=== PATIENT | male | born 1955 | race Two or more races ===

== ENCOUNTER 2017-11-09 16:19 | Inpatient (IN) | payer MEDICAID ==
[2017-11-09] MEDS ORDERED: IPRATROPIUM/ALBUTEROL 3 ML DEYVIAL IH ONE (16:27)
--- NOTE | 2017-11-09 16:45 | EDPHY ---
H & P Time Seen by Provider: 11/09/17 16:34 HPI/ROS: Chief complaint. Shortness of breath HPI. 62-year-old male presents emergency department with shortness of breath for 3 days. 3 days ago he began to develop a sore throat. It quickly followed with cough productive of yellow sputum. He does not think he has been running a fever. He does not have any chest discomfort. He feels that he can not quite take a deep full breath. However he does not have any chest discomfort especially with breathing. He does have increased shortness of breath with exertion. He does have a history of pneumonia. He continues to be a smoker. He has had sick contacts at work. Otherwise no recent travel. No unusual leg pain or swelling. ROS Constitutional. no fever/chills, no weakness Eyes. no problems with vision ENT. Sore throat Cardiovascular. no chest pain Respiratory. Shortness of breath and cough Abdominal. no abdominal pain, no nausea/vomiting, no diarrhea . no problems urinating MS. no calf pain/swelling, no neck/back pain, no joint pain Skin. no rash Lymph. no swollen glands Neuro. no headache, no dizziness, no difficulty walking or with speech Past Medical/Surgical History: Pneumonia Social History: Single, daily smoker, no alcohol Smoking Status: Current every day smoker Physical Exam: General Appearance: Alert well-developed male moderate distress vital signs show heart rate 102 and room air oxygen saturation 84% Eyes: Pupils equal and round no pallor or injection. ENT, mucous membranes are moist. Pharynx slightly injected without exudate Respiratory: Decreased air movement. No retractions. Inspiratory expiratory wheezing. Cardiovascular: regular rate and rhythm with mild tachycardia Gastrointestinal: Abdomen is soft and nontender, no masses, bowel sounds normal. Neurological: Awake and alert, sensory and motor exams grossly normal. Skin: Warm and dry, no rashes. Musculoskeletal: Neck is supple nontender. Extremities symmetrical, full range of motion. Psychiatric: Patient is oriented X 3, there is no agitation. Constitutional: Initial Vital Signs Temperature (C) 36.6 C 11/09/17 16:30 Heart Rate 102 H 11/09/17 16:30 Respiratory Rate 22 H 11/09/17 16:30 Blood Pressure 184/94 H 11/09/17 16:30 O2 Sat (%) 84 L 11/09/17 16:30 O2 Delivery Mode Nasal Cannula O2 (L/minute) 3 Allergies/Adverse Reactions: No Known Allergies Allergy (Unverified 11/09/17 16:30) Home Medications: Medication Instructions Recorded Albuterol Hfa Anes Only [Proair 2 puffs IH QID PRN #1 mdi 11/09/17 Hfa Icu (*)] Azithromycin [Zithromax] 250 mg PO DAILY #6 tab 11/09/17 predniSONE 40 mg PO DAILY #8 tablet 11/09/17 Medical Decision Making - Diagnostics Imaging Results: Imaging Impressions Chest X-Ray 11/09/17 16:55 Impression: 1. Suspicious for a right hilar mass. Recommend chest CT with IV contrast. 2. COPD/airways disease, without pneumonia. Results discussed with Dr. Bill Russell at 5:45 PM. Chest x-ray reviewed by me and discussed with Dr. Aquino shows no evidence for pneumonia. Appears to be COPD and airways disease. However there does appear to be a fullness in the right hilum suspicious for mass and again suspicious for cancer. Procedures: DuoNeb updraft Albuterol updraft, prednisone orally Albuterol updraft 2. ED Course/Re-evaluation: Patient tells me after the DuoNeb updraft he feels 75% better. Now his room air saturation is 88% After the albuterol updraft patient is much improved The patient and I discussed x-ray findings and recommendation for CT angiogram for further evaluation of perihilar mass. The patient would prefer to wait a few days rather than have it now. I have offered to do the CT angiogram here today. However the patient would prefer to wait as his son needs to start work. I emphasized the need to have this imaging study done in the next several days. He expresses understanding and agreement Re-evaluation 6:23 p.m.. Patient feels more comfortable however pulse oximeter is 83% saturation on room air. Patient and I as well as his son discussed treatment plan including recommendation for admission. They expressed understanding and agreement. They would like to drive to [facility] by private vehicle. I consulted and discussed the case with Dr. Ennis, hospitalist, who agrees to the admission Differential Diagnosis: I considered pneumonia, COPD. There is possibility of right hilar tumor. Patient continues to be hypoxic despite multiple breathing treatments. - Data Points Laboratory Results: Laboratory Results 11/09/17 18:30 11/09/17 18:30 11/09/17 11/09/17 18:30 18:30 WBC 8.50 10^3/uL 10^3/uL (3.80-9.50) RBC 5.58 10^6/uL 10^6/uL (4.40-6.38) Hgb 18.7 g/dL H g/dL (13.7-17.5) Hct 53.4 % H % (40.0-51.0) MCV 95.7 fL fL (81.5-99.8) MCH 33.5 pg pg (27.9-34.1) MCHC 35.0 g/dL g/dL (32.4-36.7) RDW 12.9 % % (11.5-15.2) Plt Count 170 10^3/uL 10^3/uL (150-400) MPV 10.4 fL fL (8.7-11.7) Neut % (Auto) 78.7 % H % (39.3-74.2) Lymph % (Auto) 10.4 % L % (15.0-45.0) Spink % (Auto) 6.2 % % (4.5-13.0) Eos % (Auto) 3.8 % % (0.6-7.6) Baso % (Auto) 0.7 % % (0.3-1.7) Nucleat RBC Rel Count 0.0 % % (0.0-0.2) Absolute Neuts (auto) 6.69 10^3/uL H 10^3/uL (1.70-6.50) Absolute Lymphs (auto) 0.88 10^3/uL L 10^3/uL (1.00-3.00) Absolute Monos (auto) 0.53 10^3/uL 10^3/uL (0.30-0.80) Absolute Eos (auto) 0.32 10^3/uL 10^3/uL (0.03-0.40) Absolute Basos (auto) 0.06 10^3/uL 10^3/uL (0.02-0.10) Absolute Nucleated RBC 0.00 10^3/uL 10^3/uL (0-0.01) Immature Gran % 0.2 % % (0.0-1.1) Immature Gran # 0.02 10^3/uL 10^3/uL (0.00-0.10) Sodium 137 mEq/L mEq/L (135-145) Potassium 3.9 mEq/L mEq/L (3.5-5.2) Chloride 99 mEq/L mEq/L (97-110) Carbon Dioxide 31 mEq/l mEq/l (22-31) Anion Gap 7 mEq/L L mEq/L (8-16) BUN 11 mg/dL mg/dL (7-23) Creatinine 0.5 mg/dL L mg/dL (0.7-1.3) Estimated GFR > 60 Glucose 166 mg/dL H mg/dL (70-100) Calcium 9.5 mg/dL mg/dL (8.5-10.4) Medications Given: Discontinued Medications Albuterol (Proventil Neb) 3 ml IH EDNOW ONE Stop: 11/09/17 16:55 Last Admin: 11/09/17 16:59 Dose: 3 ml Albuterol (Proventil Neb) 3 ml IH EDNOW ONE Stop: 11/09/17 17:57 Last Admin: 11/09/17 18:07 Dose: 3 ml Albuterol/Ipratropium (Duoneb) 3 ml IH EDNOW ONE Stop: 11/09/17 16:28 Last Admin: 11/09/17 16:33 Dose: 3 ml Prednisone (Prednisone) 60 mg PO EDNOW ONE Stop: 11/09/17 16:55 Last Admin: 11/09/17 16:59 Dose: 60 mg Departure - Departure Disposition: [facility] Inpatient Acute Clinical Impression: Chronic obstructive pulmonary disease with acute exacerbation Condition: Good
[2017-11-09] MEDS ORDERED: ALBUTEROL 3 ML DEYVIAL IH ONE ×2 (16:54→17:56)
[2017-11-09] MEDS ORDERED: predniSONE 20 MG TAB PO ONE (16:54)
[2017-11-09 18:34] LABS: PLATELET COUNT 170 10^3/uL (150-400)
[2017-11-09] MEDS ORDERED: ALBUTEROL 3 ML DEYVIAL IH PRN (22:25)
[2017-11-09] MEDS ORDERED: ONDANSETRON DISINTEGRATING 4 MG TAB PO PRN (22:25)
[2017-11-09] MEDS ORDERED: ONDANSETRON 4 MG/2 ML VIAL IVP PRN (22:25)
[2017-11-09] MEDS ORDERED: AZITHROMYCIN 250 MG TAB PO ONE (22:44)
--- NOTE | 2017-11-09 23:44 | PDGENHP ---
History and Physical - Chief Complaint Shortness of breath - History of Present Illness 62 yo M w/ presumed COPD and long smoking hx presents with shortness of breath. He explains that he first noted a sore throat 2-3 days ago. Since that time he began to note cough and progressive shortness of breath. His shortness of breath became severe today so he presented to the ED. At the ED he was noted to be in respiratory distress with diffuse wheezing and hypoxia upon presentation. He tells me he feels much improved after steroids and nebulizer treatments. History Information - Allergies/Home Medication List Allergies/Adverse Reactions: No Known Allergies Allergy (Verified 11/09/17 21:32) I have personally reviewed and updated: family history, medical history - Past Medical History COPD (No formal diagnosis) - Family History Positive for: cancer, diabetes type II - Social History Smoking Status: Current every day smoker Review of Systems Review of Systems: ROS: 10pt was reviewed & negative except for what was stated in HPI & below Physical Exam Physical Exam: Temp Pulse Resp BP Pulse Ox 37.0 C 85 18 142/83 H 93 11/09/17 23:16 11/09/17 23:16 11/09/17 23:16 11/09/17 23:16 11/09/17 23:16 O2 (L/minute) 4 Constitutional: no apparent distress, not in pain Eyes: PERRL, EOMI Ears, Nose, Mouth, Throat: moist mucous membranes, no oral mucosal ulcers Cardiovascular: regular rate and rhythym, no murmur, rub, or gallop Respiratory: no respiratory distress, expiratory wheeze (Diffuse), rhonchi Gastrointestinal: normoactive bowel sounds, soft, non-tender abdomen Skin: warm, normal color Musculoskeletal: full muscle strength, no muscle tenderness Neurologic: AAOx3, CN II-XII Intact Psychiatric: interacting appropriately, not anxious Lab Data & Imaging Review 11/09/17 18:30 11/09/17 18:30 WBC 8.50 10^3/uL (3.80-9.50) 11/09/17 18:30 RBC 5.58 10^6/uL (4.40-6.38) 11/09/17 18:30 Hgb 18.7 g/dL (13.7-17.5) H 11/09/17 18:30 Hct 53.4 % (40.0-51.0) H 11/09/17 18:30 MCV 95.7 fL (81.5-99.8) 11/09/17 18:30 MCH 33.5 pg (27.9-34.1) 11/09/17 18:30 MCHC 35.0 g/dL (32.4-36.7) 11/09/17 18:30 RDW 12.9 % (11.5-15.2) 11/09/17 18:30 Plt Count 170 10^3/uL (150-400) 11/09/17 18:30 MPV 10.4 fL (8.7-11.7) 11/09/17 18:30 Neut % (Auto) 78.7 % (39.3-74.2) H 11/09/17 18:30 Lymph % (Auto) 10.4 % (15.0-45.0) L 11/09/17 18:30 Beauregard % (Auto) 6.2 % (4.5-13.0) 11/09/17 18:30 Eos % (Auto) 3.8 % (0.6-7.6) 11/09/17 18:30 Baso % (Auto) 0.7 % (0.3-1.7) 11/09/17:30 Nucleat RBC Rel Count 0.0 % (0.0-0.2) 11/09/17 18:30 Absolute Neuts (auto) 6.69 10^3/uL (1.70-6.50) H 11/09/17 18:30 Absolute Lymphs (auto) 0.88 10^3/uL (1.00-3.00) L 11/09/17 18:30 Absolute Monos (auto) 0.53 10^3/uL (0.30-0.80) 11/09/17 18:30 Absolute Eos (auto) 0.32 10^3/uL (0.03-0.40) 11/09/17 18:30 Absolute Basos (auto) 0.06 10^3/uL (0.02-0.10) 11/09/17 18:30 Absolute Nucleated RBC 0.00 10^3/uL (0-0.01) 11/09/17 18:30 Immature Gran % 0.2 % (0.0-1.1) 11/09/17 18:30 Immature Gran # 0.02 10^3/uL (0.00-0.10) 11/09/17 18:30 Sodium 137 mEq/L (135-145) 11/09/17 18:30 Potassium 3.9 mEq/L (3.5-5.2) 11/09/17 18:30 Chloride 99 mEq/L (97-110) 11/09/17 18:30 Carbon Dioxide 31 mEq/l (22-31) 11/09/17 18:30 Anion Gap 7 mEq/L (8-16) L 11/09/17 18:30 BUN 11 mg/dL (7-23) 11/09/17 18:30 Creatinine 0.5 mg/dL (0.7-1.3) L 11/09/17 18:30 Estimated GFR > 60 11/09/17 18:30 Glucose 166 mg/dL (70-100) H 11/09/17 18:30 Calcium 9.5 mg/dL (8.5-10.4) 11/09/17 18:30 Imaging Review: Imaging Impressions Chest X-Ray 11/09/17 16:55 Impression: 1. Suspicious for a right hilar mass. Recommend chest CT with IV contrast. 2. COPD/airways disease, without pneumonia. Results discussed with Dr. Bill Russell at 5:45 PM. Assessment & Plan Assessment: 62 yo M w/ presumed COPD presents with likely COPD exacerbation and incidentally found R hilar mass. Plan: 1. Presumed COPD with acute exacerbation - Patient describes sore throat followed by progressive SOB. Presentation c/w COPD exacerbation, likely 2/2 viral trigger. He has no formal diagnosis of COPD but has >50 pack year smoking hx. He does not use any daily medication for COPD. - Prednisone, azithromycin x5 days - Duonebs QID, albuterol q2h PRN - Respiratory PCR ordered 2. Hilar mass - Incidentally found on CXR today, unclear if contributing to symptoms. Patient refused CT scan in ED today for further evaluation, would discuss this with him further and possibly defer to outpatient setting if he prefers. 3. AHRF - Most likely 2/2 #1 with possible contribution from #2. Incentive spirometry ordered, wean O2 as able. Diet - Regular Code - Full Ppx - LMWH Dispo - Admit under observation status
[2017-11-10 05:12] LABS: PLATELET COUNT 171 10^3/uL (150-400)
[2017-11-10] MEDS: IPRATROPIUM/ALBUTEROL 3 ML DEYVIAL IH SCH ×4 (05:14→19:59)
[2017-11-10] MEDS ORDERED: predniSONE 20 MG TAB PO SCH (09:00)
[2017-11-10] MEDS: AZITHROMYCIN 250 MG TAB PO SCH (10:03)
[2017-11-10] MEDS: ENOXAPARIN 40 MG/0.4 ML SYR SC SCH (10:04)
--- NOTE | 2017-11-10 14:45 | HOSPPROG ---
Hospitalist Progress Note Assessment/Plan: 62 yo M w/ presumed COPD presents with likely COPD exacerbation and incidentally found R hilar mass. Plan: 1. Presumed COPD with acute exacerbation - Patient describes sore throat followed by progressive SOB. Presentation c/w COPD exacerbation, likely 2/2 viral trigger. He has no formal diagnosis of COPD but has >50 pack year smoking hx. He does not use any daily medication for COPD. - Increase steroids and change to Solu-Medrol today, azithromycin x5 days - Duonebs QID, albuterol q2h PRN - Respiratory PCR c/w Human Metapneumovirus 2. Hilar mass - Incidentally found on CXR today, unclear if contributing to symptoms. Patient refused CT scan in ED today for further evaluation, would discuss this with him further and possibly defer to outpatient setting if he prefers. Will discuss obtaining CT with the pt. 3. AHRF - Most likely 2/2 #1 with possible contribution from #2. Incentive spirometry ordered, wean O2 as able. Diet - Regular Code - Full Ppx - LMWH Dispo - change to inpatient. Expect d/c tomorrow or the next. Wean off O2. Subjective: some improvement but still on 4 L o2. Objective: Vital Signs Temp Pulse Resp BP Pulse Ox 36.8 C 81 16 128/80 H 87 L 11/10/17 11:26 11/10/17 12:20 11/10/17 12:20 11/10/17 11:26 11/10/17 12:20 Microbiology 11/09/17 23:25 Respiratory Panel (PCR) - Final Nasal, Sinus - Anaerobic Tube/Swab Human Rhinovirus/Enterovirus Laboratory Results 11/10/17 04:55 11/10/17 04:55 - Physical Exam Constitutional: no apparent distress Eyes: PERRL, EOMI Ears, Nose, Mouth, Throat: moist mucous membranes, hearing normal, ears appear normal Cardiovascular: regular rate and rhythym, No edema Respiratory: no respiratory distress, expiratory wheeze Gastrointestinal: normoactive bowel sounds, soft, non-tender abdomen, no palpable masses Genitourinary: no bladder fullness Skin: warm Musculoskeletal: full muscle strength Neurologic: AAOx3 Psychiatric: interacting appropriately, not anxious, not encephalopathic Lymph, Heme, Immunologic: No petechiae ICD10 Worksheet Patient Problems: Problems Problem Status Onset Chronic obstructive pulmonary disease with acute exacerbation Acute
[2017-11-10] MEDS: methylPREDNISolone SOD SUCC 125 MG/2 ML VIAL IVP SCH ×2 (16:11→21:41)
--- NOTE | 2017-11-10 17:32 | ASMTCMCOM ---
CM Note CM Note Notes: Pt admitted for COPD, he is over income for medicaid can qualify for CICP but otherwise not eligible for outpt services. Anticipate will dc home independent when medically stable. CM available for any changes. DC Plan: Independent Date Signed: 11/10/2017 05:32 PM Electronically Signed By:Alie Henao RN
[2017-11-11] MEDS: IPRATROPIUM/ALBUTEROL 3 ML DEYVIAL IH SCH ×4 (05:54→20:32)
[2017-11-11] MEDS: CEPACOL LOZENGE PO PRN ×2 (07:35→16:01)
[2017-11-11] MEDS: methylPREDNISolone SOD SUCC 125 MG/2 ML VIAL IVP SCH ×2 (10:31→20:23)
[2017-11-11] MEDS: AZITHROMYCIN 250 MG TAB PO SCH (10:31)
[2017-11-11] MEDS: ENOXAPARIN 40 MG/0.4 ML SYR SC SCH (10:31)
[2017-11-11] MEDS ORDERED: IOPAMIDOL (ISOVUE-300) 100 ML BTL ONE (16:20)
--- NOTE | 2017-11-11 16:27 | HOSPPROG ---
Hospitalist Progress Note Assessment/Plan: 62 yo M w/ presumed COPD presents with likely COPD exacerbation and incidentally found R hilar mass. Plan: 1. Presumed COPD with acute exacerbation - Patient describes sore throat followed by progressive SOB. Presentation c/w COPD exacerbation, likely 2/2 viral trigger. He has no formal diagnosis of COPD but has >50 pack year smoking hx. He does not use any daily medication for COPD. -cont steroids at current dose -cont nebs scheduled and prn - Respiratory PCR c/w Human Metapneumovirus 2. Hilar mass - Incidentally found on CXR -Agrees to have CT Chest today 3. AHRF - Most likely 2/2 #1 with possible contribution from #2. Incentive spirometry ordered, wean O2 as able. -He is improving. Diet - Regular Code - Full Ppx - LMWH Dispo - cont inpatient. Subjective: still on supplemental O2. He wants to get the CT Chest to eval mass. Objective: Vital Signs Temp Pulse Resp BP Pulse Ox 36.8 C 101 H 16 150/76 H 93 11/11/17 15:24 11/11/17 16:03 11/11/17 16:03 11/11/17 16:03 11/11/17 16:03 Laboratory Results 11/10/17 04:55 11/10/17 04:55 11/10/17 11/11/17 11/12/17 05:59 05:59 05:59 Intake Total 320 1130 Balance 320 1130 - Physical Exam Constitutional: no apparent distress Eyes: PERRL, EOMI Ears, Nose, Mouth, Throat: moist mucous membranes, hearing normal Cardiovascular: regular rate and rhythym, No edema Respiratory: reduced air movement, expiratory wheeze Gastrointestinal: normoactive bowel sounds, soft, non-tender abdomen Skin: warm Musculoskeletal: full muscle strength Neurologic: AAOx3 Psychiatric: interacting appropriately, not anxious, not encephalopathic, thought process linear Lymph, Heme, Immunologic: No petechiae ICD10 Worksheet Patient Problems: Problems Problem Status Onset Chronic obstructive pulmonary disease with acute exacerbation Acute
[2017-11-12] MEDS: ACETAMINOPHEN 325 MG TAB PO PRN ×2 (04:19→11:03)
[2017-11-12] MEDS: IPRATROPIUM/ALBUTEROL 3 ML DEYVIAL IH SCH ×4 (05:19→20:11)
--- NOTE | 2017-11-12 07:38 | PDMN ---
Medical Necessity Medical necessity: 11/10/17 14:41 Patient meets inpatient criteria per MD note and MCG M-100 COPD (new or worsened s/s COPD that persist despite obs care: ongoing hypoxemia (sat 87% on 2 LPM O2), resp PCR c/w Human Metapneumovirus; incidental hilar mass found on CXR; LOS > 2 midnights for IV steroids, nebs, po antibiotics, supplemental O2.)
[2017-11-12] MEDS: AZITHROMYCIN 250 MG TAB PO SCH (08:36)
[2017-11-12] MEDS: ENOXAPARIN 40 MG/0.4 ML SYR SC SCH (08:36)
[2017-11-12] MEDS: methylPREDNISolone SOD SUCC 125 MG/2 ML VIAL IVP SCH ×2 (08:37→20:43)
--- NOTE | 2017-11-12 13:53 | HOSPPROG ---
Hospitalist Progress Note Assessment/Plan: 62 yo M w/ presumed COPD presents with likely COPD exacerbation and incidentally found R hilar mass. CT imaging personally reviewed. There is no e/o of hilar mass. He is still hypoxic and worse with activity 1. Presumed COPD with acute exacerbation - Patient describes sore throat followed by progressive SOB. Presentation c/w COPD exacerbation, likely 2/2 viral trigger. He has no formal diagnosis of COPD but has >50 pack year smoking hx. He does not use any daily medication for COPD. -cont steroids at current dose, can change to PO tomorrow -cont nebs scheduled and prn - Respiratory PCR c/w Human Metapneumovirus 2. Hilar mass - Incidentally found on CXR -Not found on CT Chest 3. AHRF - overall improving Diet - Regular Code - Full Ppx - LMWH Dispo - cont inpatient. Plan: per above keep overnight anticipate d/c tomorrow. Subjective: no cp. some sob worse with activity. some coughing. still needing O2 intermittently Objective: Vital Signs Temp Pulse Resp BP Pulse Ox 36.5 C 103 H 16 178/90 H 91 L 11/12/17 11:11 11/12/17 11:11 11/12/17 11:11 11/12/17 11:11 11/12/17 11:11 11/11/17 11/12/17 11/13/17 05:59 05:59 05:59 Intake Total 320 1130 Balance 320 1130 - Physical Exam Constitutional: no apparent distress Eyes: PERRL, EOMI Ears, Nose, Mouth, Throat: moist mucous membranes, hearing normal Cardiovascular: regular rate and rhythym Respiratory: reduced air movement, expiratory wheeze Gastrointestinal: normoactive bowel sounds, soft, non-tender abdomen, no palpable masses Skin: warm Neurologic: AAOx3 Psychiatric: interacting appropriately, not anxious, not encephalopathic Lymph, Heme, Immunologic: No petechiae ICD10 Worksheet Patient Problems: Problems Problem Status Onset Chronic obstructive pulmonary disease with acute exacerbation Acute
[2017-11-13] MEDS: IPRATROPIUM/ALBUTEROL 3 ML DEYVIAL IH SCH ×3 (05:11→15:48)
[2017-11-13 07:50] VITALS: BP 131/80
[2017-11-13] MEDS: methylPREDNISolone SOD SUCC 125 MG/2 ML VIAL IVP SCH (09:03)
[2017-11-13] MEDS: AZITHROMYCIN 250 MG TAB PO SCH (09:03)
[2017-11-13] MEDS: ENOXAPARIN 40 MG/0.4 ML SYR SC SCH (09:03)
[2017-11-13] MEDS ORDERED: MAGNESIUM HYDROXIDE 30 ML UDCUP PO PRN (09:44)
[2017-11-13] MEDS ORDERED: BISACODYL 10 MG SUPP PR PRN (09:44)
[2017-11-13] MEDS ORDERED: POLYETHYLENE GLYCOL 3350 17 GM PKT PO PRN (09:44)
[2017-11-13] MEDS ORDERED: LACTULOSE 20 GM/30 ML UDCUP PO PRN (09:44)
--- NOTE | 2017-11-13 13:53 | PDHOMEO2F ---
Home Oxygen Face to Face Home Orders: I certify that a physician or a nurse practitioner or physician's assistant shift supervisor has had a [id number] encounter with this patient on the date of this order due to the diagnosis listed, which relates to the primary reason the patient requires home oxygen. Alternative treatments have been tried, or considered, and deemed ineffective. It is anticipated that supplemental oxygen will result in improvement with treatment. Home oxygen qualifying diagnosis: hypoxemia SpO2 on room air (%): 87 Frequency of home oxygen needed: continuous Home oxygen liters per minute: 2 Home oxygen delivery device: nasal cannula Concentrator: Yes E-tanks for mobility and back up: Yes If ordering portable O2, is the patient mobile in the home?: Yes I certify that, based on these findings, the home oxygen is medically necessary for this patient for the following length of time. Length of time home oxygen needed: 1 week
--- NOTE | 2017-11-13 14:09 | PDDCSUM ---
Discharge Summary Discharge Summary: 62 yo M w/ presumed COPD presents with likely COPD exacerbation and incidentally found R hilar mass on CXR On CT imaging there was no e/o of hilar mass. He was admitted and started on IV steroids and scheduled nebs. Azithromycin was started. He has improved but still on supplemental O2. He will d/c on supplemental O2. He will f/u with a PCP next week. DDX: 1. Presumed COPD with acute exacerbation - Patient describes sore throat followed by progressive SOB. Presentation c/w COPD exacerbation, likely 2/2 viral trigger. He has no formal diagnosis of COPD but has >50 pack year smoking hx. He does not use any daily medication for COPD. -cont steroids at current dose, can change to PO tomorrow -cont nebs scheduled and prn - Respiratory PCR c/w Human Metapneumovirus 2. Hilar mass - Incidentally found on CXR -Not found on CT Chest 3. AHRF - overall improving, requiring supplemental O2 intermittently Exam: vss on 2 L o2 NAD AAOX3 RRR EXP WHEEZE NO EDEMA MEDS: SEE MED REC F/U: WITH PCP, [facility], NEXT WEEK TOTAL TIME SPENT ON D/C IS 35 MINUTES.
--- NOTE | 2017-11-13 15:29 | ASMTCMCOM ---
CM Note CM Note Notes: Spoke w/MD, pt needs home O2, pt will pay with credit card as he is self pay here. Also needs to f/u with PCP but does not have one, CM called and left message for [facility] to reach out to pt, gave pt [facility] phone number as well and urged him to call and schedule appt. Pt has no other needs, CM available for any changes. DC Plan: Independent Date Signed: 11/13/2017 03:28 PM Electronically Signed By:Alie Henao RN
[2017-11-13] MEDS ORDERED: SENNOSIDES/DOCUSATE SODIUM TAB PO SCH (21:00)
== END 2017-11-13 16:41 | disposition home or self-care (01) | DRG 190 ==
LOC: CED 16:19 → INTOOBSV 18:38 → CEDHOLD 18:38 → F3E 20:22 → OBSVTOIN 11-10 14:41
PROVIDERS: ADMIT Internal Medicine; ATTEND Internal Medicine
DX: J44.1 Chronic obstructive pulmonary disease with (acute) exacerbation (principal); J96.01 Acute respiratory failure with hypoxia; R91.8 Other nonspecific abnormal finding of lung field; Z72.0 Tobacco use
CPT/HCPCS: 71046-PO; 80048-PO; 85025-PO; G0378; J1650; J2930; J7512; J7613; Q9967